=== PATIENT | female | born 1980 | race Caucasian/White ===

== ENCOUNTER 2016-09-14 00:51 | Emergency (ER) | payer MEDICAID ==
--- NOTE | 2016-09-18 20:07 | ER ---
ADMIT: 09/14/2016 RM/LOC: ER [facility] MR#: [id number] [id number] NICOLE GOMEZ [address] [facility] [place] [id number] Emergency Room Report SEX: F AGE: 36 : 1980 DATE: 09/14/2016 The patient is a 36-year-old female with alcohol abuse, multiple detox, and prior history of pancreatitis, drinks 750 mL of vodka a day, last drank immediately prior to arrival. Transferred over from [facility] due to hypotension and agitation. The patient admits to using amphetamine with her vodka. Exam remarkable for nontoxic, afebrile, hypotensive female, pressure of 90/70, pulse of 95%. Received 3 L of normal saline, Zofran, Toradol, Fentanyl, Protonix with relief of pain. CT abdomen and pelvis within normal limits. WBC 4.7, potassium 3.6, lipase 122, troponin less than 0.015, CRP less than 0.29, EtOH 207. Tox screen positive for amphetamine, lactic 0.8. HCG negative. Urine otherwise negative. The patient tolerated oral challenge, ambulated well in department, transferred back to [facility]. Zhou Leon MD/ darshan JOB #: [id number] CC: Zhou Leon MD, Attending Physician Cristian Carroll MD, Family Physician Cristian Carroll MD
== END 2016-09-14 05:10 | disposition other institution (70) ==
LOC: ER 00:51
DX: F10.229 Alcohol dependence with intoxication, unspecified (principal); F10.239 Alcohol dependence with withdrawal, unspecified; K29.20 Alcoholic gastritis without bleeding; F15.10 Other stimulant abuse, uncomplicated; F17.210 Nicotine dependence, cigarettes, uncomplicated; F31.9 Bipolar disorder, unspecified; Z90.49 Acquired absence of other specified parts of digestive tract; Z88.5 Allergy status to narcotic agent; Y90.7 Blood alcohol level of 200-239 mg/100 ml